=== PATIENT | female | born 2000 | race African-American/Black ===

== ENCOUNTER 2020-11-14 20:08 | Emergency (ER) | payer MEDICAID ==
[2020-11-14] MEDS ORDERED: Ondansetron 4 MG Tab.DIS PO ONE ×2 (20:35→21:37)
[2020-11-14] MEDS ORDERED: Ketorolac 60 MG/2 ML SDV IM ONE (20:35)
--- NOTE | 2020-11-14 20:41 | EDM.PDOC ---
ED HPI GENERAL MEDICAL PROBLEM - General Chief Complaint: LEARNING AND DEVELOPMENT INTERN Problem Stated Complaint: HAS PERIOD/NAUSEA AND PAIN Time Seen by Provider: 11/14/20 20:24 Source of Information: Reports: Patient, RN Notes Reviewed History Limitations: Reports: No Limitations - History of Present Illness INITIAL COMMENTS - FREE TEXT/NARRATIVE: Patient is a 20-year-old female who presents to the ED for the evaluation of her nausea and vomiting. Patient notes that she gets nausea and vomiting with her periods, she has prescription nausea medications at home, but states she is not able to keep these down. She did also try to take some Midol and ibuprofen for the low abdomen pain but was also not able to keep these down. She states that again she just has not been able to keep anything down for food or fluids, but she is not complaining of any dizziness, lightheadedness, she is having no stomach pain. Her LEARNING AND DEVELOPMENT INTERN is Dr. Mcgill, she did not call her for her illness today. Patient has had chills but no fever, no cough or shortness of breath. Patient strongly asserts that she is not . - Related Data Allergies Allergy/AdvReac Type Severity Reaction Status Date / Time No Known Allergies Allergy Verified 11/14/20 20:25 Home Meds: Home Meds Ondansetron [Zofran ODT] 4 mg PO Q8H PRN #15 tab.dis 11/14/20 [Rx] Past Medical History - Past Health History Medical/Surgical History: Denies Medical/Surgical History Psychiatric History: Reports: None Social & Family History - Tobacco Use Tobacco Use Status *Q: Never Tobacco User ED ROS GENERAL - Review of Systems Review Of Systems: Comprehensive ROS is negative, except as noted in HPI. ED EXAM, RENAL/ - Physical Exam Exam: See Below Exam Limited By: No Limitations General Appearance: Alert, WD/WN, No Apparent Distress Respiratory/Chest: No Respiratory Distress, Lungs Clear, Normal Breath Sounds, No Accessory Muscle Use, Chest Non-Tender Cardiovascular: Normal Peripheral Pulses, Regular Rate, Rhythm, No Edema GI/Abdominal: Normal Bowel Sounds, Soft, No Distention, No Mass, Tender (low abdomen/pelvic discomfort) Extremities: Normal Inspection, Normal Capillary Refill Neurological: Alert, Oriented, Normal Cognition, No Motor/Sensory Deficits Psychiatric: Normal Affect, Normal Mood Skin Exam: Warm, Dry, Intact, Normal Color, No Rash Course - Vital Signs Last Recorded V/S: Last Vital Signs Temp 98.9 F 11/14/20 20:22 Pulse 80 11/14/20 20:22 Resp 16 11/14/20 20:22 BP 135/86 11/14/20 20:22 Pulse Ox 98 11/14/20 20:22 Orthostatic Blood Pressure [ 128/82 Standing] Orthostatic Blood Pressure [ 135/86 Supine] - Orders/Labs/Meds Orders: Active Orders 24 hr Category Date Time Status Communication Order [RC] ASDIRECTED Care 11/14/20 20:53 Ordered Meds: Medications Discontinued Medications Generic Name Dose Route Start Last Admin Trade Name Freq PRN Reason Stop Dose Admin Ketorolac Tromethamine 60 mg 11/14/20 20:35 11/14/20 20:46 Toradol IM 11/14/20 20:36 60 mg ONETIME ONE Administration Ondansetron HCl 4 mg 11/14/20 20:35 11/14/20 20:46 Zofran Odt PO 11/14/20 20:36 4 mg ONETIME ONE Administration - Re-Assessments/Exams Free Text/Narrative Re-Assessment/Exam: 11/14/20 20:37 Patient presents to the ED for the evaluation of her nausea vomiting and abdomen pain. As she states that she does not think she be , we will go ahead and give her an IM injection of Toradol, and give her ODT Zofran for nausea management. 11/14/20 21:14 Was reassessed at bedside, was able to keep some fluids down we will go ahead and discharge her home at this time. Departure - Departure Time of Disposition: 21:14 Disposition: Home, Self-Care 01 Condition: Good Clinical Impression: Nausea and vomiting in adult, Pelvic pain - Discharge Information *PRESCRIPTION DRUG MONITORING PROGRAM REVIEWED*: No *COPY OF PRESCRIPTION DRUG MONITORING REPORT IN PATIENT VITOR: No Prescriptions: Ondansetron [Zofran ODT] 4 mg PO Q8H PRN #15 tab.dis PRN Reason: Nausea Instructions: Nausea and Vomiting, Adult, [id number] Referrals: PCP,None [Primary Care Provider] - Forms: ED Department Discharge Additional Instructions: You were seen in this ER today for your nausea and vomiting, and abdominal pain. You were given oral Zofran for nausea management, and given an IM injection of an anti-inflammatory for pain management. You were given a few tablets of Zofran for ongoing nausea management, this will be 1 tablet dissolvable under your tongue every 8 hours as needed for further nausea. Please do so on a scheduled basis so you can take your Midol/ibuprofen as needed for abdomen pain. Please return to the ER at any time if symptoms change or worsen. Sepsis Event Note (ED) - Evaluation Sepsis Screening Result: No Definite Risk - Focused Exam Vital Signs: Vital Signs Temp Pulse Resp BP Pulse Ox 11/14/20 20:22 98.9 F 80 16 135/86 98 - My Orders Last 24 Hours: My Active Orders 11/14/20 20:53 Communication Order [RC] ASDIRECTED - Assessment/Plan Last 24 Hours: My Active Orders 11/14/20 20:53 Communication Order [RC] ASDIRECTED
== END 2020-11-14 21:43 | disposition home or self-care (01) ==
LOC: JD.ED 20:08
DX: R11.2 Nausea with vomiting, unspecified (principal); R10.2 Pelvic and perineal pain
CPT/HCPCS: 96372; 99283; A9270; J1885